=== PATIENT | male | born 1970 | race Caucasian/White ===

== ENCOUNTER 2016-10-05 11:57 | Inpatient (IN) | payer BC ==
[2016-10-05 12:54] VITALS: BMI 25.4
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
[2016-10-05] MEDS ORDERED: MAG HYDROX/AL HYDROX/SIMETH 30 ML UNIT-DOSE CUP PO PRN (14:44)
[2016-10-05] MEDS ORDERED: MENTHOL/PHENOL 1 EACH UD MM PRN (14:44)
[2016-10-05] MEDS ORDERED: ACETAMINOPHEN 325 MG TABLET (FP) PO PRN (14:44)
[2016-10-05] MEDS ORDERED: IBUPROFEN 400 MG TABLET (FP) PO PRN (14:44)
[2016-10-05] MEDS ORDERED: P-EPHED 60MG/TRIPROLIDI 2.5MG TABLET PO PRN (14:44)
[2016-10-05] MEDS ORDERED: NICOTINE POLACRILEX 2 MG GUM BUC PRN (14:44)
[2016-10-05] MEDS ORDERED: hydrOXYzine PAMOATE 25 MG CAPSULE (FP) PO PRN (14:44)
[2016-10-05] MEDS ORDERED: MAGNESIUM HYDROX 2400MG/30ML ORAL SUSPENSION 30 ML CUP PO PRN (14:44)
[2016-10-05] MEDS ORDERED: MAGNESIUM CITRATE 300 ML BOTTLE PO PRN (14:44)
[2016-10-05] MEDS ORDERED: guaiFENesin/D-METHORPHAN HB 10 ML UNIT-DOSE CUPS PO PRN (14:44)
[2016-10-05] MEDS ORDERED: LOPERAMIDE HCL 2 MG CAPSULE PO PRN (14:44)
[2016-10-05] MEDS ORDERED: NICOTINE 14 MG/24 HOURS TOPICAL PATCH TD SCH (14:45)
[2016-10-05] MEDS ORDERED: ALBUTEROL SO4 6.7 GM HFA INHALER IH PRN (14:50)
[2016-10-05] MEDS ORDERED: chlordiazePOXIDE HCL 25 MG CAPSULE PO ONE (15:13)
[2016-10-05 16:40] LABS: MCH 32.8 pg (25.7-33.7); MCHC 33.3 g/dl (32.0-35.9); MEAN CELL VOLUME 98.5 fl (80-96); MEAN PLT VOLUME 9.4 fl (7.5-11.1); PLATELET COUNT 66 K/MM3 (134-434); RDW 13.9 % (11.9-15.9); WHITE BLOOD COUNT 4.5 K/mm3 (4.0-10.0)
[2016-10-05 16:56] LABS: URINE APPEARANCE CLEAR; URINE BILIRUBIN NEGATIVE (NEGATIVE); URINE COLOR DKYELLOW; URINE GLUCOSE (UA) NEGATIVE (NEGATIVE); URINE KETONE NEGATIVE (NEGATIVE); URINE LEUK ESTERASE NEGATIVE (NEGATIVE); URINE NITRITE NEGATIVE (NEGATIVE); URINE PROTEIN NEGATIVE (NEGATIVE); URINE UROBILINOGEN 4.0 E.U/dl E.U./dl (0.2-1.0)
[2016-10-05 16:56] LABS: ALBUMIN 4.1 g/dl (3.4-5.0); ANION GAP 16 (8-16); BILIRUBIN,TOTAL 1.7 mg/dL (0.2-1.0); CALCIUM 8.2 mg/dL (8.5-10.1); CO2 22 mmol/L (21-32); COCKROFT - GAULT 130.82; CREATININE 0.7 mg/dL (0.7-1.3); GLUCOSE,RANDOM 94 mg/dL (74-106); SGOT/AST 209 U/L (15-37); SGPT/ALT 133 U/L (12-78); TOT PROT 7.2 g/dl (6.4-8.2)
[2016-10-05 16:57] LABS: ALK PHOS 101 U/L (45-117)
[2016-10-05] MEDS: chlordiazePOXIDE HCL 25 MG CAPSULE PO SCH ×2 (17:26→22:37)
[2016-10-05 17:33] LABS: URINE BLOOD 1+ (NEGATIVE)
[2016-10-05 17:43] LABS: GRANULAR CASTS 3 /lpf; URINE HYALINE CAST 4 /lpf; URINE MUCUS FEW; URINE RBC 1 /hpf (0-3); URINE WBC 2 /hpf (3-5)
[2016-10-05] MEDS: chlordiazePOXIDE HCL 25 MG CAPSULE PO PRN (20:05)
[2016-10-05] MEDS: THIAMINE HCL 100 MG TABLET (FP) PO SCH (22:37)
[2016-10-06] MEDS: chlordiazePOXIDE HCL 25 MG CAPSULE PO PRN ×3 (00:38→21:39)
[2016-10-06] MEDS: diphenhydrAMINE HCL 50 MG CAPSULE PO PRN ×2 (00:38→23:03)
[2016-10-06] MEDS: chlordiazePOXIDE HCL 25 MG CAPSULE PO SCH ×4 (06:03→23:03)
[2016-10-06] MEDS: PRENATAL VITAMINS W/ FOLIC ACID TABLET (FP) PO SCH (10:09)
[2016-10-06] MEDS: NICOTINE 21 MG/24 HOURS TOPICAL PATCH TD SCH (10:10)
--- NOTE | 2016-10-06 12:10 | PN ---
[facility] CIWA - CIWA Score Nausea/Vomitin-No Nausea/No Vomiting Muscle Tremors: 5 Anxiety: 5 Agitation: 5 Paroxysmal Sweats: 1-Minimal Palms Moist Orientation: 0-Oriented Tacttile Disturbances: 3-Moderate Itch/Numb/Burn Auditory Disturbances: 0-None Visual Disturbances: 0-None Headache: 0-None Present CIWA-Ar Total Score: 19 BHS Progress Note (SOAP) Subjective: ANXIETY,TREMORS,IRRITABILITY,FATIGUE,INTERMITTENT SLEEP. Objective: 10/06/16 12:09 Vital Signs Temperature 96.8 F L 10/06/16 10:21 Pulse Rate 92 H 10/06/16 10:21 Respiratory Rate 18 10/06/16 10:21 Blood Pressure 134/92 10/06/16 10:21 O2 Sat by Pulse Oximetry (%) Laboratory Last Values WBC 4.5 K/mm3 (4.0-10.0) 10/05/16 13:00 RBC 4.32 M/mm3 (4.00-5.60) 10/05/16 13:00 Hgb 14.2 GM/dL (11.7-16.9) 10/05/16 13:00 Hct 42.6 % (35.4-49) 10/05/16 13:00 MCV 98.5 fl (80-96) H 10/05/16 13:00 MCHC 33.3 g/dl (32.0-35.9) 10/05/16 13:00 RDW 13.9 % (11.9-15.9) 10/05/16 13:00 Plt Count 66 K/MM3 (134-434) L 10/05/16 13:00 MPV 9.4 fl (7.5-11.1) 10/05/16 13:00 Sodium 139 mmol/L (136-145) 10/05/16 13:00 Potassium 3.7 mmol/L (3.5-5.1) 10/05/16 13:00 Chloride 101 mmol/L (98-107) 10/05/16 13:00 Carbon Dioxide 22 mmol/L (21-32) 10/05/16 13:00 Anion Gap 16 (8-16) 10/05/16 13:00 BUN 5 mg/dL (7-18) L 10/05/16 13:00 Creatinine 0.7 mg/dL (0.7-1.3) 10/05/16 13:00 Creat Clearance w eGFR > 60 (>60) 10/05/16 13:00 Random Glucose 94 mg/dL (74-106) 10/05/16 13:00 Calcium 8.2 mg/dL (8.5-10.1) L 10/05/16 13:00 Total Bilirubin 1.7 mg/dL (0.2-1.0) H 10/05/16 13:00 AST 209 U/L (15-37) H 10/05/16 13:00 ALT 133 U/L (12-78) H 10/05/16 13:00 Alkaline Phosphatase 101 U/L (45-117) 10/05/16 13:00 Total Protein 7.2 g/dl (6.4-8.2) 10/05/16 13:00 Albumin 4.1 g/dl (3.4-5.0) 10/05/16 13:00 Urine Color Dkyellow 10/05/16 15:00 Urine Appearance Clear 10/05/16 15:00 Urine pH 6.0 (5.0-8.0) 10/05/16 15:00 Ur Specific [place] 1.012 (1.001-1.035) 10/05/16 15:00 Urine Protein Negative (NEGATIVE) 10/05/16 15:00 Urine Glucose (UA) Negative (NEGATIVE) 10/05/16 15:00 Urine Ketones Negative (NEGATIVE) 10/05/16 15:00 Urine Blood 1+ (NEGATIVE) H 10/05/16 15:00 Urine Nitrite Negative (NEGATIVE) 10/05/16 15:00 Urine Bilirubin Negative (NEGATIVE) 10/05/16 15:00 Urine Urobilinogen 4.0 e.u/dl E.U./dl (0.2-1.0) 10/05/16 15:00 Ur Leukocyte Esterase Negative (NEGATIVE) 10/05/16 15:00 Urine RBC 1 /hpf (0-3) 10/05/16 15:00 Urine WBC 2 /hpf (3-5) 10/05/16 15:00 Ur Epithelial Cells Rare /hpf (FEW) 10/05/16 15:00 Hyaline Casts 4 /lpf 10/05/16 15:00 Granular Casts 3 /lpf 10/05/16 15:00 Urine Mucus Few 10/05/16 15:00 Assessment: 10/06/16 12:09 WITHDRAWAL SX Plan: CONTINUE DETOX ADDITIONAL LIBRIUM 50 MG PO ONCE AT 2:30 PM TODAY.
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
--- NOTE | 2016-10-06 13:18 | EKG ---
Test Reason : Blood Pressure : / mmHG Vent. Rate : 100 BPM Atrial Rate : 100 BPM P-R Int : 126 ms QRS Dur : 072 ms QT Int : 352 ms P-R-T Axes : 066 066 056 degrees QTc Int : 454 ms NORMAL SINUS RHYTHM NORMAL ECG NO PREVIOUS ECGS AVAILABLE Confirmed by DAVIS SUMMERS, SUMANTH ([id number]) on 10/06/2016 1:18:09 PM Referred By: Confirmed By:SUMANTH CANNON MD
[2016-10-06] MEDS ORDERED: chlordiazePOXIDE HCL 25 MG CAPSULE PO ONE (14:30)
[2016-10-06] MEDS: THIAMINE HCL 100 MG TABLET (FP) PO SCH (23:02)
[2016-10-07] MEDS: chlordiazePOXIDE HCL 25 MG CAPSULE PO SCH ×2 (06:03→11:05)
--- NOTE | 2016-10-07 11:03 | PN ---
[facility] CIWA - CIWA Score Nausea/Vomitin-Mild Nausea/No Vomiting Muscle Tremors: 4-Moderate,w/Arms Extend Anxiety: 4-Mod. Anxious/Guarded Agitation: 3 Paroxysmal Sweats: 3 Orientation: 0-Oriented Tacttile Disturbances: 0-None Auditory Disturbances: 0-None Visual Disturbances: 0-None Headache: 0-None Present CIWA-Ar Total Score: 15 BHS Progress Note (SOAP) Subjective: Anxiety,tremors,sweating,interrupted sleep,restless Objective: 10/07/16 11:02 Vital Signs - 8 hr 10/07/16 10/07/16 10/07/16 03:30 06:42 07:57 Temperature 96.4 F L Pulse Rate 98 H 82 Respiratory 18 18 Rate Blood Pressure 133/98 115/82 10/07/16 10:18 Temperature 98.6 F Pulse Rate 120 H Respiratory 22 Rate Blood Pressure 135/95 Laboratory Tests 10/05/16 10/05/16 10/05/16 13:00 13:00 13:00 WBC 4.5 RBC 4.32 Hgb 14.2 Hct 42.6 MCV 98.5 H MCHC 33.3 RDW 13.9 Plt Count 66 L MPV 9.4 Sickle Cell Screen Sodium 139 Potassium 3.7 Chloride 101 Carbon Dioxide 22 Anion Gap 16 BUN 5 L Creatinine 0.7 Creat Clearance w eGFR > 60 Random Glucose 94 Calcium 8.2 L Total Bilirubin 1.7 H AST 209 H ALT 133 H Alkaline Phosphatase 101 Total Protein 7.2 Albumin 4.1 Urine Color Urine Appearance Urine pH Ur Specific [place] Urine Protein Urine Glucose (UA) Urine Ketones Urine Blood Urine Nitrite Urine Bilirubin Urine Urobilinogen Ur Leukocyte Esterase Urine RBC Urine WBC Ur Epithelial Cells Hyaline Casts Granular Casts Urine Mucus RPR Titer Nonreactive 10/05/16 10/06/16 15:00 07:00 WBC RBC Hgb Hct MCV MCHC RDW Plt Count MPV Sickle Cell Screen Negative Sodium Potassium Chloride Carbon Dioxide Anion Gap BUN Creatinine Creat Clearance w eGFR Random Glucose Calcium Total Bilirubin AST ALT Alkaline Phosphatase Total Protein Albumin Urine Color Dkyellow Urine Appearance Clear Urine pH 6.0 Ur Specific [place] 1.012 Urine Protein Negative Urine Glucose (UA) Negative Urine Ketones Negative Urine Blood 1+ H Urine Nitrite Negative Urine Bilirubin Negative Urine Urobilinogen 4.0 e.u/dl Ur Leukocyte Esterase Negative Urine RBC 1 Urine WBC 2 Ur Epithelial Cells Rare Hyaline Casts 4 Granular Casts 3 Urine Mucus Few RPR Titer labs noted Assessment: 10/07/16 11:02 Withdrawal sx. Plan: Continue detox
[2016-10-07] MEDS: PRENATAL VITAMINS W/ FOLIC ACID TABLET (FP) PO SCH (11:05)
[2016-10-07] MEDS: NICOTINE 21 MG/24 HOURS TOPICAL PATCH TD SCH (11:05)
[2016-10-07] MEDS: chlordiazePOXIDE HCL 25 MG CAPSULE PO PRN ×2 (14:28→20:01)
[2016-10-07] MEDS: chlordiazePOXIDE 5 MG CAPSULE PO SCH ×2 (17:18→22:28)
[2016-10-07] MEDS: diphenhydrAMINE HCL 50 MG CAPSULE PO PRN (22:28)
[2016-10-07] MEDS: THIAMINE HCL 100 MG TABLET (FP) PO SCH (22:28)
[2016-10-08] MEDS: chlordiazePOXIDE 5 MG CAPSULE PO SCH ×2 (05:48→10:43)
[2016-10-08] MEDS: chlordiazePOXIDE HCL 25 MG CAPSULE PO PRN ×2 (09:06→13:06)
[2016-10-08] MEDS: PRENATAL VITAMINS W/ FOLIC ACID TABLET (FP) PO SCH (10:43)
[2016-10-08] MEDS: NICOTINE 21 MG/24 HOURS TOPICAL PATCH TD SCH (10:46)
--- NOTE | 2016-10-08 11:21 | PN ---
BHS Progress Note (SOAP) Subjective: ANXIETY,SWEATS,TREMORS,UNSTABLE GAIT, FATIGUE. Objective: 10/08/16 11:21 Vital Signs Temperature 96.1 F L 10/08/16 10:04 Pulse Rate 76 10/08/16 10:04 Respiratory Rate 18 10/08/16 10:04 Blood Pressure 110/82 10/08/16 10:04 O2 Sat by Pulse Oximetry (%) Assessment: 10/08/16 11:21 WITHDRAWAL SX Plan: CONTINUE DETOX
[2016-10-08 13:25] LABS: ALBUMIN 3.4 g/dl (3.4-5.0); ANION GAP 8 (8-16); CALCIUM 9.2 mg/dL (8.5-10.1); CO2 28 mmol/L (21-32); COCKROFT - GAULT 114.46; CREATININE 0.8 mg/dL (0.7-1.3); GLUCOSE,RANDOM 83 mg/dL (74-106); SGOT/AST 109 U/L (15-37); SGPT/ALT 137 U/L (12-78)
[2016-10-08 13:26] LABS: ALK PHOS 82 U/L (45-117); BILIRUBIN,TOTAL 0.6 mg/dL (0.2-1.0); TOT PROT 6.2 g/dl (6.4-8.2)
[2016-10-08 13:31] LABS: INR 0.97 (0.82-1.09); PROTHROMBIN TIME (PATIENT) 10.7 SEC (9.98-11.88)
[2016-10-08] MEDS: chlordiazePOXIDE HCL 10 MG CAPSULE PO SCH ×2 (16:55→22:37)
[2016-10-08] MEDS: diphenhydrAMINE HCL 50 MG CAPSULE PO PRN (22:37)
[2016-10-08] MEDS: THIAMINE HCL 100 MG TABLET (FP) PO SCH (22:37)
[2016-10-09] MEDS: chlordiazePOXIDE HCL 10 MG CAPSULE PO SCH (05:41)
[2016-10-09 09:48] VITALS: BP 128/89; PULSE 95; TEMP 96.3
[2016-10-09] MEDS: PRENATAL VITAMINS W/ FOLIC ACID TABLET (FP) PO SCH (10:21)
[2016-10-09] MEDS: NICOTINE 21 MG/24 HOURS TOPICAL PATCH TD SCH (10:21)
--- NOTE | 2016-10-09 10:50 | DS ---
[facility] Detox Discharge Summary Admission Date: 10/05/16 Discharge Date: 10/09/16 - History Present History: Alcohol Dependence Pertinent Past History: Alcohol induced seizures, asthma - Physical Exam Results Vital Signs: Vital Signs Temperature 96.3 F L 10/09/16 09:48 Pulse Rate 95 H 10/09/16 09:48 Respiratory Rate 16 10/09/16 09:48 Blood Pressure 128/89 10/09/16 09:48 O2 Sat by Pulse Oximetry (%) Pertinent Admission Physical Exam Findings: withdrawal sx Laboratory Last Values WBC 4.5 K/mm3 (4.0-10.0) 10/05/16 13:00 RBC 4.32 M/mm3 (4.00-5.60) 10/05/16 13:00 Hgb 14.2 GM/dL (11.7-16.9) 10/05/16 13:00 Hct 42.6 % (35.4-49) 10/05/16 13:00 MCV 98.5 fl (80-96) H 10/05/16 13:00 MCHC 33.3 g/dl (32.0-35.9) 10/05/16 13:00 RDW 13.9 % (11.9-15.9) 10/05/16 13:00 Plt Count 66 K/MM3 (134-434) L 10/05/16 13:00 MPV 9.4 fl (7.5-11.1) 10/05/16 13:00 Sickle Cell Screen Negative (NEGATIVE) 10/06/16 07:00 INR 0.97 (0.82-1.09) 10/08/16 11:30 Sodium 140 mmol/L (136-145) 10/08/16 11:30 Potassium 3.9 mmol/L (3.5-5.1) 10/08/16 11:30 Chloride 104 mmol/L (98-107) 10/08/16 11:30 Carbon Dioxide 28 mmol/L (21-32) D 10/08/16 11:30 Anion Gap 8 (8-16) 10/08/16 11:30 BUN 8 mg/dL (7-18) D 10/08/16 11:30 Creatinine 0.8 mg/dL (0.7-1.3) 10/08/16 11:30 Creat Clearance w eGFR > 60 (>60) 10/08/16 11:30 Random Glucose 83 mg/dL (74-106) 10/08/16 11:30 Calcium 9.2 mg/dL (8.5-10.1) 10/08/16 11:30 Total Bilirubin 0.6 mg/dL (0.2-1.0) D 10/08/16 11:30 AST 109 U/L (15-37) H D 10/08/16 11:30 ALT 137 U/L (12-78) H 10/08/16 11:30 Alkaline Phosphatase 82 U/L (45-117) 10/08/16 11:30 Total Protein 6.2 g/dl (6.4-8.2) L 10/08/16 11:30 Albumin 3.4 g/dl (3.4-5.0) 10/08/16 11:30 Urine Color Dkyellow 10/05/16 15:00 Urine Appearance Clear 10/05/16 15:00 Urine pH 6.0 (5.0-8.0) 10/05/16 15:00 Ur Specific [place] 1.012 (1.001-1.035) 10/05/16 15:00 Urine Protein Negative (NEGATIVE) 10/05/16 15:00 Urine Glucose (UA) Negative (NEGATIVE) 10/05/16 15:00 Urine Ketones Negative (NEGATIVE) 10/05/16 15:00 Urine Blood 1+ (NEGATIVE) H 10/05/16 15:00 Urine Nitrite Negative (NEGATIVE) 10/05/16 15:00 Urine Bilirubin Negative (NEGATIVE) 10/05/16 15:00 Urine Urobilinogen 4.0 e.u/dl E.U./dl (0.2-1.0) 10/05/16 15:00 Ur Leukocyte Esterase Negative (NEGATIVE) 10/05/16 15:00 Urine RBC 1 /hpf (0-3) 10/05/16 15:00 Urine WBC 2 /hpf (3-5) 10/05/16 15:00 Ur Epithelial Cells Rare /hpf (FEW) 10/05/16 15:00 Hyaline Casts 4 /lpf 10/05/16 15:00 Granular Casts 3 /lpf 10/05/16 15:00 Urine Mucus Few 10/05/16 15:00 RPR Titer Nonreactive (NONREACTIVE) 10/05/16 13:00 labs noted - Treatment Hospital Course: Detox Protocol Followed, Detoxed Safely, Responded well, Discharged Condition Good - Medication Discharge Medications: Ambulatory Orders Albuterol Sulfate Inhaler - [Ventolin Hfa Inhaler -] 2 inh PO Q4H PRN 10/05/16 - Diagnosis (1) Alcohol dependence with uncomplicated withdrawal Current Visit: Yes Status: Acute (2) Nicotine dependence Current Visit: Yes Status: Acute Qualifiers: Nicotine product type: cigarettes Substance use status: uncomplicated Qualified Code(s): F17.210 - Nicotine dependence, cigarettes, uncomplicated (3) Asthma Current Visit: Yes Status: Chronic Qualifiers: Asthma severity: mild intermittent Asthma complication type: uncomplicated Qualified Code(s): J45.20 - Mild intermittent asthma, uncomplicated (4) Seizure due to alcohol withdrawal Current Visit: Yes Status: Chronic Qualifiers: Complication of substance-induced condition: with unspecified complication Qualified Code(s): F10.239 - Alcohol dependence with withdrawal, unspecified; R56.9 - Unspecified convulsions - AMA Did Patient Leave Against Medical Advice: No
== END 2016-10-09 10:43 | disposition home or self-care (01) | DRG 775 ==
LOC: YASAS 11:57 → Y3N 14:29
PROVIDERS: ADMIT Internal Medicine; ATTEND Internal Medicine
PROC: HZ2ZZZZ Detoxification Services for Substance Abuse Treatment (ICD-10-PCS; principal; 2016-10-09)
DX: F10.230 Alcohol dependence with withdrawal, uncomplicated (principal); F17.210 Nicotine dependence, cigarettes, uncomplicated; J45.20 Mild intermittent asthma, uncomplicated; G40.509 Epileptic seizures related to external causes, not intractable, without status epilepticus; G47.00 Insomnia, unspecified
CPT/HCPCS: 36415; 80053; 81003; 81015; 85027; 85610; 85660; 86593; 93005; 93010

== ENCOUNTER 2019-07-25 10:17 | Inpatient (IN) | payer OTHER ==
[2019-07-25 11:13] VITALS: BMI 29.8
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
[2019-07-25] MEDS ORDERED: MAGNESIUM CITRATE 300 ML BOTTLE PO PRN (16:14)
[2019-07-25] MEDS ORDERED: BISMUTH SUBSALICYLATE 524 MG/30 ML UD PO PRN (16:14)
[2019-07-25] MEDS ORDERED: hydrOXYzine PAMOATE 25 MG CAPSULE (FP) PO PRN (16:14)
[2019-07-25] MEDS ORDERED: MELATONIN 5 MG TABLETS PO PRN (16:14)
[2019-07-25] MEDS ORDERED: MAGNESIUM HYDROX 2400MG/30ML ORAL SUSPENSION 30 ML CUP PO PRN (16:14)
[2019-07-25] MEDS ORDERED: chlordiazePOXIDE HCL 25 MG CAPSULE PO PRN (16:14)
[2019-07-25] MEDS ORDERED: IBUPROFEN 400 MG TABLET (FP) PO PRN (16:14)
[2019-07-25] MEDS ORDERED: MENTHOL/PHENOL 1 EACH UD MM PRN (16:14)
[2019-07-25] MEDS ORDERED: ACETAMINOPHEN 325 MG TABLET (FP) PO PRN ×2 (16:14)
[2019-07-25] MEDS ORDERED: MAG HYDROX/AL HYDROX/SIMETH 30 ML UNIT-DOSE CUP PO PRN (16:14)
[2019-07-25] MEDS: chlordiazePOXIDE HCL 25 MG CAPSULE PO SCH ×2 (18:18→22:15)
[2019-07-25] MEDS: FAMOTIDINE 20 MG TABLET PO SCH (18:18)
[2019-07-25] MEDS: NICOTINE 21 MG/24 HOURS TOPICAL PATCH TD SCH (18:18)
[2019-07-25] MEDS ORDERED: levETIRAcetam 500 MG TABLET (FP) PO SCH (22:00)
[2019-07-25] MEDS ORDERED: ESLICARBAZEPINE ACETATE 800 MG PO SCH (22:00)
[2019-07-25] MEDS: levETIRAcetam 500 MG TABLET (FP) PO SCH (22:15)
[2019-07-25] MEDS: THIAMINE HCL 100 MG TABLET (FP) PO SCH (22:15)
[2019-07-25] MEDS: MONTELUKAST NA 5 MG TAB.CHEW PO SCH (22:15)
[2019-07-25] MEDS: METHOCARBAMOL 500 MG TABLET PO PRN (22:15)
[2019-07-26] MEDS: chlordiazePOXIDE HCL 25 MG CAPSULE PO SCH ×4 (06:09→23:53)
[2019-07-26 09:45] LABS: HEMATOCRIT 46.2 % (35.4-49); HEMOGLOBIN 15.3 GM/dL (11.7-16.9); MCHC 33.1 g/dl (32.0-35.9); MEAN CELL VOLUME 96.8 fl (80-96); MEAN PLT VOLUME 8.1 fl (7.5-11.1); PLATELET COUNT 92 K/MM3 (134-434); RBC 4.77 M/mm3 (4.00-5.60); RDW 14.2 % (11.9-15.9); WHITE BLOOD COUNT 3.4 K/mm3 (4.0-10.0)
[2019-07-26] MEDS ORDERED: PRENATAL VITAMINS W/ FOLIC ACID TABLET (FP) PO SCH (10:00)
[2019-07-26 10:03] LABS: ALBUMIN 3.1 g/dl (3.4-5.0); BILIRUBIN,TOTAL 1.1 mg/dL (0.2-1); BLOOD UREA NITROGEN 9.6 mg/dL (7-18); CALCIUM 8.6 mg/dL (8.5-10.1); CREATININE 0.8 mg/dL (0.55-1.3); POTASSIUM 3.2 mmol/L (3.5-5.1); TOT PROT 6.1 g/dl (6.4-8.2)
--- NOTE | 2019-07-26 10:17 | PN ---
[facility] CIWA - CIWA Score Nausea/Vomitin-Mild Nausea/No Vomiting Muscle Tremors: 4-Moderate,w/Arms Extend Anxiety: 4-Mod. Anxious/Guarded Agitation: 2 Paroxysmal Sweats: 2 Orientation: 0-Oriented Tacttile Disturbances: 0-None Auditory Disturbances: 0-None Visual Disturbances: 1-Very Mild Sensitivity Headache: 0-None Present CIWA-Ar Total Score: 14 S Progress Note (SOAP) Subjective: 48 year old male admitted on 07/25/19 for alcohol withdrawal sx management treating with librium detox regiment feeling tired prefers to stay in bed today limited conversation with staff patient is taking aptiom 800mg po bid x 4 years Mr Farris has not brought in aptiom upon admission patient reports using [facility] in the [place] called [phone] without success encourage the patient to contact with his neurologist 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 while in detox keppra continues 1000mg po bid instead of 500mg po bid Objective: 07/26/19 10:31 Vital Signs Temperature 97.2 F L 07/26/19 09:01 Pulse Rate 85 07/26/19 09:01 Respiratory Rate 18 07/26/19 09:01 Blood Pressure 117/81 07/26/19 09:01 O2 Sat by Pulse Oximetry (%) Laboratory Last Values WBC 3.4 K/mm3 (4.0-10.0) L 07/26/19 08:00 RBC 4.77 M/mm3 (4.00-5.60) 07/26/19 08:00 Hgb 15.3 GM/dL (11.7-16.9) 07/26/19 08:00 Hct 46.2 % (35.4-49) 07/26/19 08:00 MCV 96.8 fl (80-96) H 07/26/19 08:00 MCH 32.0 pg (25.7-33.7) 07/26/19 08:00 MCHC 33.1 g/dl (32.0-35.9) 07/26/19 08:00 RDW 14.2 % (11.9-15.9) 07/26/19 08:00 Plt Count 92 K/MM3 (134-434) L D 07/26/19 08:00 MPV 8.1 fl (7.5-11.1) D 07/26/19 08:00 Sodium 141 mmol/L (136-145) 07/26/19 08:00 Potassium 3.2 mmol/L (3.5-5.1) L 07/26/19 08:00 Chloride 106 mmol/L (98-107) 07/26/19 08:00 Carbon Dioxide 28 mmol/L (21-32) 07/26/19 08:00 Anion Gap 7 MMOL/L (8-16) L 07/26/19 08:00 BUN 9.6 mg/dL (7-18) 07/26/19 08:00 Creatinine 0.8 mg/dL (0.55-1.3) 07/26/19 08:00 Est GFR (CKD-EPI)AfAm 120.72 07/26/19 08:00 Est GFR (CKD-EPI)NonAf 104.16 07/26/19 08:00 Random Glucose 114 mg/dL (74-106) H 07/26/19 08:00 Calcium 8.6 mg/dL (8.5-10.1) 07/26/19 08:00 Total Bilirubin 1.1 mg/dL (0.2-1) H 07/26/19 08:00 AST 95 U/L (15-37) H 07/26/19 08:00 ALT 140 U/L (13-61) H 07/26/19 08:00 Alkaline Phosphatase 84 U/L (45-117) 07/26/19 08:00 Total Protein 6.1 g/dl (6.4-8.2) L 07/26/19 08:00 Albumin 3.1 g/dl (3.4-5.0) L 07/26/19 08:00 lb noted K+ 3.2 K+ placement repeat K+ Assessment: 07/26/19 10:34 alcohol withdrawal Plan: librium regiment
[2019-07-26] MEDS: levETIRAcetam 500 MG TABLET (FP) PO SCH ×2 (10:25→23:52)
[2019-07-26] MEDS: NICOTINE 21 MG/24 HOURS TOPICAL PATCH TD SCH (10:25)
[2019-07-26] MEDS: FAMOTIDINE 20 MG TABLET PO SCH (10:25)
[2019-07-26] MEDS: METHOCARBAMOL 500 MG TABLET PO PRN (10:26)
[2019-07-26] MEDS ORDERED: POTASSIUM CHLORIDE ORAL LIQUID 20 MEQ/15 ML PO ONE ×2 (11:08→15:00)
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
[2019-07-26] MEDS: carBAMazepine 200 MG TABLET PO SCH ×2 (15:47→23:53)
[2019-07-26 17:34] VITALS: PULSE 78
[2019-07-26 18:33] VITALS: BP 147/97; TEMP 97
--- NOTE | 2019-07-26 18:43 | PN ---
[facility] Progress Note Note: Was called by RN to eval pt for dizziness. 48 yo M w/ Hx of seizure d/o, HTN, alcohol abuse is in [place] care for detox from alcohol. pt states his last seizure was last week. pt states that he is compliant with his home meds and follows with his neurologist. He states that since tuesday he has been having presyncopal events and syncope on tuesday. + LOC. pt states that he gets lightheaded, palpitations. he states he feels unsteady walking. He states that his symptoms are especially bad today as he is so afraid to get out of bed and falling. Orthostatics were done and negative. + Romberg. 152/100, DC 84 141/104, 82 Will send to [facility] ED for further eval for syncope/pre-syncope. Sign out given to Dr. Johnny Garcia
[2019-07-26] MEDS: MONTELUKAST NA 5 MG TAB.CHEW PO SCH (23:52)
[2019-07-26] MEDS: THIAMINE HCL 100 MG TABLET (FP) PO SCH (23:53)
[2019-07-27] MEDS ORDERED: chlordiazePOXIDE HCL 25 MG CAPSULE PO SCH (05:00)
[2019-07-28] MEDS ORDERED: chlordiazePOXIDE HCL 10 MG CAPSULE PO PRN
[2019-07-28] MEDS ORDERED: chlordiazePOXIDE HCL 10 MG CAPSULE PO SCH (05:00)
[2019-07-29] MEDS ORDERED: chlordiazePOXIDE HCL 10 MG CAPSULE PO SCH (05:00)
[2019-07-30] MEDS ORDERED: chlordiazePOXIDE HCL 10 MG CAPSULE PO ONE (05:00)
== END 2019-07-26 23:56 | disposition short-term general hospital (02) | DRG 775 ==
LOC: YASAS 10:17 → Y3N 16:44
PROVIDERS: ADMIT Allergy & Immunology; ATTEND Allergy & Immunology
PROC: HZ2ZZZZ Detoxification Services for Substance Abuse Treatment (ICD-10-PCS; principal; 2019-07-25)
DX: F10.230 Alcohol dependence with withdrawal, uncomplicated (principal); F17.210 Nicotine dependence, cigarettes, uncomplicated; I10 Essential (primary) hypertension; G40.909 Epilepsy, unspecified, not intractable, without status epilepticus; J45.20 Mild intermittent asthma, uncomplicated; Z91.011 Allergy to milk products
CPT/HCPCS: 36415; 80053; 85027; 86593

== ENCOUNTER 2019-07-26 19:26 | Inpatient (IN) | payer OTHER ==
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
[2019-07-26 20:59] LABS: BASO % 0.4 % (0-2.0); HEMATOCRIT 47.9 % (35.4-49); HEMOGLOBIN 16.1 GM/dL (11.7-16.9); LYMPH % 31.4 % (8-40); MCH 32.3 pg (25.7-33.7); MCHC 33.7 g/dl (32.0-35.9); MEAN CELL VOLUME 95.8 fl (80-96); MEAN PLT VOLUME 8.4 fl (7.5-11.1); MONO % 10.5 % (3.8-10.2); NEUT % 55.7 % (42.8-82.8); PLATELET COUNT 121 K/MM3 (134-434); RDW 14.1 % (11.9-15.9); WHITE BLOOD COUNT 4.2 K/mm3 (4.0-10.0)
[2019-07-26 21:00] LABS: PH,URINE 8.5 (5.0-8.0); URINE APPEARANCE TURBID; URINE BILIRUBIN NEGATIVE (NEGATIVE); URINE COLOR YELLOW; URINE GLUCOSE (UA) NEGATIVE (NEGATIVE); URINE KETONE NEGATIVE (NEGATIVE); URINE LEUK ESTERASE NEGATIVE (NEGATIVE); URINE NITRITE NEGATIVE (NEGATIVE); URINE PROTEIN NEGATIVE (NEGATIVE)
--- NOTE | 2019-07-26 21:25 | PDOC ---
Attending Attestation - Resident Resident Name: Zelalem Darby - ED Attending Attestation I have performed the following: I have examined & evaluated the patient, The case was reviewed & discussed with the resident, I agree w/resident's findings & plan, Exceptions are as noted - HPI HPI: 07/27/19 00:36 See resident HPI - Physicial Exam PE: 07/27/19 00:36 Agree with documented exam - Medical Decision Making 07/27/19 00:38 48M pmh seizure, asthma, etoh abuse, sent from [facility] for several episodes of syncope a/w loc in context of 1 week of lightheadedness, vertigo, unstable gait. toxin? metabolic derangement? seizures? eval for syncope, consider cva f/u labs, ct dispo per clinical course likely admit
[2019-07-26] MEDS ORDERED: SODIUM CHLORIDE 1,000 ML IV SCH (21:30)
[2019-07-26 21:48] LABS: ALBUMIN 3.5 g/dl (3.4-5.0); ALK PHOS 96 U/L (45-117); ANION GAP 7 MMOL/L (8-16); BILIRUBIN,TOTAL 0.6 mg/dL (0.2-1); BLOOD UREA NITROGEN 10.8 mg/dL (7-18); CALCIUM 9.2 mg/dL (8.5-10.1); CHLORIDE 104 mmol/L (98-107); CO2 28 mmol/L (21-32); CREATININE 0.8 mg/dL (0.55-1.3); GLUCOSE,RANDOM 94 mg/dL (74-106); POTASSIUM 4.5 mmol/L (3.5-5.1); SGOT/AST 72 U/L (15-37); SGPT/ALT 130 U/L (13-61); SODIUM 138 mmol/L (136-145); TOT PROT 6.7 g/dl (6.4-8.2)
[2019-07-26 22:14] LABS: COCAINE, UR NEGATIVE ng/ml (CUTOFF=300); METHADONE, UR NEGATIVE ng/ml (CUTOFF=300); OPIATES, URI NEGATIVE ng/ml (CUTOFF=300); PHENCYCLIDINE,URINE NEGATIVE ng/ml (CUTOFF=25); URINE AMPHETAMINES NEGATIVE ng/ml (CUTOFF=500); URINE BARBITURATES NEGATIVE ng/ml (CUTOFF=200)
[2019-07-26 22:18] LABS: URINE BENZODIAZEPINES POSITIVE ng/ml (CUTOFF=200)
[2019-07-26] MEDS ORDERED: chlordiazePOXIDE HCL 25 MG CAPSULE PO ONE (23:37)
[2019-07-26] MEDS ORDERED: chlordiazePOXIDE HCL 25 MG CAPSULE PO PRN (23:37)
[2019-07-26] MEDS ORDERED: BISMUTH SUBSALICYLATE 524 MG/30 ML UD PO PRN (23:49)
[2019-07-26] MEDS ORDERED: ALBUTEROL SO4 HFA INHALER IH PRN (23:49)
[2019-07-26] MEDS ORDERED: FOLIC ACID 1 MG TABLET (FP) PO ONE (23:58)
[2019-07-27] MEDS ORDERED: SODIUM CHLORIDE 1,000 ML IV SCH
[2019-07-27 00:59] LABS: CHOLESTEROL 198 mg/dL (50-200); HDL CHOLESTEROL 81 mg/dL (40-60); LDL CHOLESTEROL (ONLY SJRH) 92 mg/dL (5-100); TRIGLYCERIDES 192 mg/dL (0-150)
[2019-07-27] MEDS ORDERED: HEPARIN NA (PORCINE) 5,000 UNITS/ML 1ML VIAL SQ SCH (02:00)
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
--- NOTE | 2019-07-27 02:35 | PN ---
Teaching Attending Note Name of Resident: Az Sullivan ATTENDING PHYSICIAN STATEMENT I saw and evaluated the patient. I reviewed the resident's note and discussed the case with the resident. I agree with the resident's findings and plan as documented. SUBJECTIVE: 48-year-old male with a significant history for seizures, EtOH abuse, vertigo status post seizure episode about 1 week ago on Keppra and carbamazepine sent from [facility] to ER after an episode of syncope with loss of consciousness with vertigo, unstable gait, lightheadedness. OBJECTIVE: Last Vital Signs Temp Pulse Resp BP Pulse Ox 98.4 F 83 18 129/93 98 07/26/19 23:33 07/26/19 23:33 07/26/19 23:33 07/26/19 23:33 07/26/19 23:33 GENERAL: Well developed, well nourished. Awake and alert. No acute distress. HEENT: Normocephalic, atraumatic. PERRLA, EOMI. No conjunctival pallor. Sclera are non- icteric. Moist mucous membranes. Oropharynx is clear. NECK: Supple. Full ROM. No JVD. Carotid pulses 2+ and symmetric, without bruits. No thyromegaly. No lymphadenopathy. CARDIOVASCULAR: Regular rate and rhythm. No murmurs, rubs, or gallops. Distal pulses are 2+ and symmetric. PULMONARY: No evidence of respiratory distress. Lungs clear to auscultation bilaterally. No wheezing, rales or rhonchi. ABDOMINAL: Soft. Non-tender. Non-distended. No rebound or guarding. No organomegaly. Normoactive bowel sounds. MUSCULOSKELETAL Normal range of motion at all joints. No bony deformities or tenderness. No CVA tenderness. EXTREMITIES: No cyanosis. No clubbing. No edema. No calf tenderness. SKIN: Warm and dry. Normal capillary refill. No rashes. No jaundice. NEUROLOGICAL: Alert, awake, appropriate. Cranial nerves 2-12 intact. No deficits to light touch and temperature in face, upper extremities and lower extremities. No motor deficits in the in face, upper extremities and lower extremities. Normoreflexic in the upper and lower extremities. Normal speech. PSYCHIATRIC: Cooperative. Good eye contact. Appropriate mood and affect. Abnormal Lab Results 07/26/19 07/26/19 07/26/19 20:25 20:25 20:25 Plt Count 121 L D Monocytes % 10.5 H Anion Gap 7 L AST 72 H ALT 130 H Triglycerides 192 H HDL Cholesterol 81 H Urine pH Salicylates Benzodiazepines Screen Positive A* 07/26/19 07/26/19 20:25 20:38 Plt Count Monocytes % Anion Gap AST ALT Triglycerides HDL Cholesterol Urine pH 8.5 H D Salicylates < 1.7 L Benzodiazepines Screen Imaging studies reviewed, CT of head with no evidence of acute intracranial pathology, cervical spine CT showed no fracture identified, probable moderate to market C4-C5 central canal stenosis. ASSESSMENT AND PLAN: 48-year-old male with history of substance abuse and seizure disorder presenting with ataxia. Initial imaging of head and C-spine in the ER was negative for any acute insults. R/o CVA. Admit to telemetry Send carbamazepine and Keppra levels Continue with home dose carbamazepine and Keppra MRI of brain Neurology consult Echo, carotid Doppler Urine toxicology screen showed benzos CIWA protocol Thiamine, folate, multivitamin, Ativan IV as needed Neuro checks Bedrest and fall precautions DVT prophylaxisheparin subcutaneously
[2019-07-27] MEDS ORDERED: LORazepam 2 MG/ML SDV VIAL IVPUSH PRN (03:23)
[2019-07-27] MEDS ORDERED: ALBUTEROL SO4 2.5/IPRATROPIUM 0.5 INH SOL 3 ML VIAL.NEB. NEB PRN (03:26)
[2019-07-27] MEDS ORDERED: MENTHOL/PHENOL 1 EACH UD MM PRN (03:29)
[2019-07-27] MEDS ORDERED: IBUPROFEN 400 MG TABLET (FP) PO PRN (03:32)
[2019-07-27] MEDS ORDERED: MAG HYDROX/AL HYDROX/SIMETH 30 ML UNIT-DOSE CUP PO PRN (03:32)
[2019-07-27] MEDS ORDERED: BISMUTH SUBSALICYLATE 524 MG/30 ML UD PO PRN (03:33)
[2019-07-27] MEDS ORDERED: METHOCARBAMOL 500 MG TABLET PO PRN (03:35)
[2019-07-27] MEDS ORDERED: hydrOXYzine PAMOATE 25 MG CAPSULE (FP) PO PRN (03:36)
[2019-07-27] MEDS ORDERED: ACETAMINOPHEN 325 MG TABLET (FP) PO PRN (03:36)
[2019-07-27] MEDS ORDERED: MECLIZINE HCL 12.5 MG TABLET PO PRN (04:12)
[2019-07-27] MEDS ORDERED: ONDANSETRON 4 MG/2 ML VIAL IVPUSH PRN (04:12)
[2019-07-27] MEDS: chlordiazePOXIDE HCL 25 MG CAPSULE PO SCH ×2 (06:03→11:21)
[2019-07-27] MEDS: HEPARIN NA (PORCINE) 5,000 UNITS/ML 1ML VIAL SQ SCH ×2 (06:03→13:06)
[2019-07-27] MEDS: carBAMazepine 200 MG TABLET PO SCH ×2 (06:03→13:08)
[2019-07-27 07:22] LABS: BASO % 0.3 % (0-2.0); EOS % 1.7 % (0-4.5); HEMATOCRIT 44.7 % (35.4-49); HEMOGLOBIN 15.1 GM/dL (11.7-16.9); LYMPH % 41.4 % (8-40); MCH 32.3 pg (25.7-33.7); MCHC 33.7 g/dl (32.0-35.9); MEAN CELL VOLUME 95.9 fl (80-96); MEAN PLT VOLUME 8.1 fl (7.5-11.1); MONO % 9.5 % (3.8-10.2); NEUT % 47.1 % (42.8-82.8); PLATELET COUNT 92 K/MM3 (134-434); RBC 4.67 M/mm3 (4.00-5.60); RDW 13.9 % (11.9-15.9); WHITE BLOOD COUNT 3.3 K/mm3 (4.0-10.0)
[2019-07-27 07:27] LABS: INR 0.94 (0.83-1.09); PROTHROMBIN TIME (PATIENT) 11.1 SEC (9.7-13.0)
[2019-07-27 07:30] LABS: ACTIVATED PTT 31.4 SECONDS (25.2-36.5)
[2019-07-27 08:25] LABS: ALBUMIN 3.2 g/dl (3.4-5.0); BILIRUBIN,TOTAL 0.8 mg/dL (0.2-1); BLOOD UREA NITROGEN 8.5 mg/dL (7-18); CALCIUM 8.8 mg/dL (8.5-10.1); CREATININE 0.8 mg/dL (0.55-1.3); POTASSIUM 3.9 mmol/L (3.5-5.1); TOT PROT 6.4 g/dl (6.4-8.2)
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
[2019-07-27] MEDS ORDERED: FAMOTIDINE 20 MG TABLET PO SCH (10:00)
[2019-07-27] MEDS ORDERED: NICOTINE 21 MG/24 HOURS TOPICAL PATCH TD SCH (10:00)
[2019-07-27] MEDS ORDERED: levETIRAcetam 500 MG TABLET (FP) PO SCH (10:00)
[2019-07-27] MEDS ORDERED: MULTIVITAMINS (DAILY MVI) TABLET (FP) PO SCH (10:00)
--- NOTE | 2019-07-27 11:23 | PN ---
Physical Exam: SUBJECTIVE: Patient seen and examined OBJECTIVE: Vital Signs Period Temp Pulse Resp BP Sys/Garcia Pulse Ox Last 24 Hr 97.4 F-98.4 F 69-83 18-18 114-143/79-98 96-99 GENERAL: The patient is awake, alert, and fully oriented, in no acute distress. HEAD: Normal with no signs of trauma. EYES: PERRL, extraocular movements intact, sclera anicteric, conjunctiva clear. No ptosis. ENT: Ears normal, nares patent, oropharynx clear without exudates, moist mucous membranes. NECK: Trachea midline, full range of motion, supple. LUNGS: Breath sounds equal, clear to auscultation bilaterally, no wheezes, no crackles, no accessory muscle use. HEART: Regular rate and rhythm, S1, S2 without murmur, rub or gallop. ABDOMEN: Soft, nontender, nondistended, normoactive bowel sounds, no guarding, no rebound, no hepatosplenomegaly, no masses. EXTREMITIES: 2+ pulses, warm, well-perfused, no edema. NEUROLOGICAL: Cranial nerves II through XII grossly intact. Normal speech, gait not observed. PSYCH: Normal mood, normal affect. SKIN: Warm, dry, normal turgor, no rashes or lesions noted Laboratory Results - last 24 hr 07/26/19 07/26/19 07/26/19 12:30 20:25 20:25 WBC 4.2 RBC 5.00 Hgb 16.1 Hct 47.9 MCV 95.8 MCH 32.3 MCHC 33.7 RDW 14.1 Plt Count 121 L D MPV 8.4 Absolute Neuts (auto) 2.4 Neutrophils % 55.7 Lymphocytes % 31.4 Monocytes % 10.5 H Eosinophils % 2.0 Basophils % 0.4 Nucleated RBC % 0 PT with INR 11.10 INR 0.94 PTT (Actin FS) 31.4 Sodium Potassium Chloride Carbon Dioxide Anion Gap BUN Creatinine Est GFR (CKD-EPI)AfAm Est GFR (CKD-EPI)NonAf Random Glucose Calcium Total Bilirubin AST ALT Alkaline Phosphatase Creatine Kinase 211 Creatine Kinase Index 0.6 CK-MB (CK-2) 1.4 Troponin I < 0.02 Total Protein Albumin Triglycerides Cholesterol Total LDL Cholesterol HDL Cholesterol Vitamin B12 TSH Urine Color Urine Appearance Urine pH Ur Specific [place] Urine Protein Urine Glucose (UA) Urine Ketones Urine Blood Urine Nitrite Urine Bilirubin Urine Urobilinogen Ur Leukocyte Esterase Salicylates Opiates Screen Methadone Screen Acetaminophen Barbiturate Screen Carbamazepine Phencyclidine Screen Ur Amphetamines Screen MDMA (Ecstasy) Screen Benzodiazepines Screen Cocaine Screen U Marijuana (THC) Screen Alcohol, Quantitative Blood Type Antibody Screen 07/26/19 07/26/19 07/26/19 20:25 20:25 20:25 WBC RBC Hgb Hct MCV MCH MCHC RDW Plt Count MPV Absolute Neuts (auto) Neutrophils % Lymphocytes % Monocytes % Eosinophils % Basophils % Nucleated RBC % PT with INR INR PTT (Actin FS) Sodium 138 Potassium 4.5 Chloride 104 Carbon Dioxide 28 Anion Gap 7 L BUN 10.8 Creatinine 0.8 Est GFR (CKD-EPI)AfAm 120.72 Est GFR (CKD-EPI)NonAf 104.16 Random Glucose 94 Calcium 9.2 Total Bilirubin 0.6 AST 72 H ALT 130 H Alkaline Phosphatase 96 Creatine Kinase Creatine Kinase Index CK-MB (CK-2) Troponin I Total Protein 6.7 Albumin 3.5 Triglycerides 192 H Cholesterol 198 Total LDL Cholesterol 92 HDL Cholesterol 81 H Vitamin B12 TSH Urine Color Yellow Urine Appearance Turbid Urine pH 8.5 H D Ur Specific [place] 1.021 Urine Protein Negative Urine Glucose (UA) Negative Urine Ketones Negative Urine Blood Negative Urine Nitrite Negative Urine Bilirubin Negative Urine Urobilinogen 1.0 Ur Leukocyte Esterase Negative Salicylates Opiates Screen Negative Methadone Screen Negative Acetaminophen Barbiturate Screen Negative Carbamazepine Phencyclidine Screen Negative Ur Amphetamines Screen Negative MDMA (Ecstasy) Screen Negative Benzodiazepines Screen Positive A* Cocaine Screen Negative U Marijuana (THC) Screen Negative Alcohol, Quantitative < 3 Blood Type Antibody Screen 07/26/19 07/26/19 07/26/19 20:32 20:38 23:35 WBC RBC Hgb Hct MCV MCH MCHC RDW Plt Count MPV Absolute Neuts (auto) Neutrophils % Lymphocytes % Monocytes % Eosinophils % Basophils % Nucleated RBC % PT with INR INR PTT (Actin FS) Sodium Potassium Chloride Carbon Dioxide Anion Gap BUN Creatinine Est GFR (CKD-EPI)AfAm Est GFR (CKD-EPI)NonAf Random Glucose Calcium Total Bilirubin AST ALT Alkaline Phosphatase Creatine Kinase Creatine Kinase Index CK-MB (CK-2) Troponin I Total Protein Albumin Triglycerides Cholesterol Total LDL Cholesterol HDL Cholesterol Vitamin B12 TSH Urine Color Urine Appearance Urine pH Ur Specific [place] Urine Protein Urine Glucose (UA) Urine Ketones Urine Blood Urine Nitrite Urine Bilirubin Urine Urobilinogen Ur Leukocyte Esterase Salicylates < 1.7 L Opiates Screen Methadone Screen Acetaminophen --noresult-- Barbiturate Screen Carbamazepine Phencyclidine Screen Ur Amphetamines Screen MDMA (Ecstasy) Screen Benzodiazepines Screen Cocaine Screen U Marijuana (THC) Screen Alcohol, Quantitative Blood Type O POSITIVE Antibody Screen Negative 07/27/19 07/27/19 07/27/19 05:45 05:45 06:45 WBC 3.3 L RBC 4.67 Hgb 15.1 Hct 44.7 MCV 95.9 MCH 32.3 MCHC 33.7 RDW 13.9 Plt Count 92 L D MPV 8.1 Absolute Neuts (auto) 1.6 Neutrophils % 47.1 Lymphocytes % 41.4 H D Monocytes % 9.5 Eosinophils % 1.7 Basophils % 0.3 Nucleated RBC % 0 PT with INR INR PTT (Actin FS) Sodium 139 Potassium 3.9 Chloride 105 Carbon Dioxide 29 Anion Gap 6 L BUN 8.5 Creatinine 0.8 Est GFR (CKD-EPI)AfAm 120.72 Est GFR (CKD-EPI)NonAf 104.16 Random Glucose 82 Calcium 8.8 Total Bilirubin 0.8 AST 54 H ALT 112 H Alkaline Phosphatase 86 Creatine Kinase Creatine Kinase Index CK-MB (CK-2) Troponin I Total Protein 6.4 Albumin 3.2 L Triglycerides Cholesterol Total LDL Cholesterol HDL Cholesterol Vitamin B12 472 TSH 4.58 H Urine Color Urine Appearance Urine pH Ur Specific [place] Urine Protein Urine Glucose (UA) Urine Ketones Urine Blood Urine Nitrite Urine Bilirubin Urine Urobilinogen Ur Leukocyte Esterase Salicylates Opiates Screen Methadone Screen Acetaminophen <2.0 Barbiturate Screen Carbamazepine 2.7 Phencyclidine Screen Ur Amphetamines Screen MDMA (Ecstasy) Screen Benzodiazepines Screen Cocaine Screen U Marijuana (THC) Screen Alcohol, Quantitative Blood Type Antibody Screen Active Medications Generic Name Dose Route Start Last Admin Trade Name Freq PRN Reason Stop Dose Admin Acetaminophen 650 mg 07/27/19 03:36 07/27/19 06:06 Tylenol - PO 650 mg Q6H PRN Administration Fever Or Pain Al Hydroxide/Mg Hydroxide 30 ml 07/27/19 03:32 Mylanta Oral Suspension - PO Q6H PRN DYSPEPSIA Albuterol Sulfate 2 puff 07/26/19 23:49 Ventolin Hfa Inhaler - IH Q4H PRN SHORTNESS OF BREATH Albuterol/Ipratropium 1 amp 07/27/19 03:26 Duoneb - NEB Q4H PRN SHORTNESS OF BREATH Bismuth Subsalicylate 524 mg 07/26/19 23:49 Pepto-Bismol - PO PRN PRN DIARRHEA Carbamazepine 200 mg 07/27/19 06:00 07/27/19 06:03 Tegretol - PO 200 mg TID LEODAN Administration Chlordiazepoxide HCl 10 mg 07/28/19 05:00 Librium - PO 07/28/19 23:01 [id number] LEODAN Chlordiazepoxide HCl 10 mg 07/29/19 05:00 Librium - PO 07/29/19 17:01 Q12H LEODAN Chlordiazepoxide HCl 10 mg 07/28/19 00:00 Librium - PO 07/29/19 00:00 Q4H PRN WITHDRAWAL(CONT SUBST) Chlordiazepoxide HCl 10 mg 07/30/19 05:00 Librium - PO 07/30/19 05:01 ONCE@0500 ONE Chlordiazepoxide HCl 25 mg 07/27/19 05:00 07/27/19 06:03 Librium - PO 07/27/19 23:01 25 mg [id number] LEODAN Administration Chlordiazepoxide HCl 25 mg 07/26/19 23:37 Librium - PO 07/27/19 23:59 Q4H PRN WITHDRAWAL(CONT SUBST) Eucalyptus/Menthol/Phenol/Sorbitol 1 each 07/27/19 03:29 Cepastat Lozenge - MM Q4H PRN SORE THROAT Famotidine 20 mg 07/27/19 10:00 Pepcid - PO DAILY [facility] Heparin Sodium (Porcine) 5,000 unit 07/27/19 06:00 07/27/19 06:03 Heparin - SQ 5,000 unit TID LEODAN Administration Hydroxyzine Pamoate 25 mg 07/27/19 03:36 Vistaril - PO Q6H PRN ANXIETY Sodium Chloride 1,000 mls @ 100 mls/hr 07/27/19 00:00 07/27/19 00:53 Normal Saline - IV 100 mls/hr ASDIR LEODAN Administration Ibuprofen 400 mg 07/27/19 03:32 Motrin - PO Q6H PRN PAIN LEVEL 6-10 Levetiracetam 1,000 mg 07/27/19 10:00 Keppra - PO BID [facility] Lorazepam 1 mg 07/27/19 03:23 Ativan Injection - IVPUSH Q6H PRN WITHDRAWAL(CONT SUBST) Meclizine HCl 12.5 mg 07/27/19 04:12 Antivert - PO BID PRN VERTIGO Melatonin 5 mg 07/27/19 22:00 Melatonin PO HS [facility] Methocarbamol 500 mg 07/27/19 03:35 Robaxin - PO Q6H PRN MUSCLE SPASMS Montelukast Sodium 5 mg 07/27/19 22:00 Singulair - PO HS [facility] Multivitamins/Minerals/Vitamin C 1 tab 07/27/19 10:00 Tab-A-Vit - PO DAILY [facility] Nicotine 21 mg 07/27/19 10:00 Nicoderm Patch - TD DAILY [facility] Ondansetron HCl 4 mg 07/27/19 04:12 Zofran Injection IVPUSH ONCE PRN NAUSEA Propranolol HCl 40 mg 07/27/19 10:00 Inderal - PO DAILY [facility] Thiamine HCl 100 mg 07/27/19 22:00 Vitamin B1 - PO HS [facility] ASSESSMENT/PLAN:
--- NOTE | 2019-07-27 12:03 | ECHO ---
Name: JERRYTESSYS Exam:Adult Echocardiogram Study Date: 07/27/2019 08:31 AM Age: 48 yrs Reason For Study: stroke r/o Height: 66 in Weight: 185 lb BSA: 1.9 m2 MMode/2D Measurements & Calculations IVSd: 0.99 cm Ao root diam: 3.3 cm LVIDd: 4.8 cm LA dimension: 3.6 cm LVIDs: 3.5 cm ACS: 2.0 cm LVPWd: 0.90 cm IVSs: 1.2 cm LVPWs: 1.0 cm EDV(Teich): 108.6 ml ESV(Teich): 50.9 ml Doppler Measurements & Calculations MV E max ab: 46.2 cm/sec Ao V2 max: 114.0 cm/sec MV A max ab: 58.2 cm/sec Ao max P.2 mmHg MV E/A: 0.79 Ao V2 mean: 78.9 cm/sec Ao mean P.9 mmHg Ao V2 VTI: 22.8 cm TR max ab: 245.4 cm/sec Med Peak E' Ab: 6.0 cm/sec TR max P.1 mmHg Med E/e': 7.7 Lat Peak E' Ab: 7.5 cm/sec Lat E/e': 6.2 Left Ventricle Left ventricular systolic function is normal. Ejection Fraction = 50-55%. The transmitral spectral Do ppler flow pattern is suggestive of impaired LV relaxation. Right Ventricle The right ventricle is grossly normal size. The right ventricular systolic function is grossly normal . Atria Normal left and right atrial size and function. Mitral Valve There is mild mitral valve thickening. There is no mitral valve stenosis. There is mild mitral regurg itation. Tricuspid Valve The tricuspid valve is normal in structure and function. There is mild tricuspid regurgitation. Right ventricular systolic pressure is normal. Aortic Valve The aortic valve opens well. No hemodynamically significant valvular aortic stenosis. No aortic regur gitation is present. Pulmonic Valve The pulmonic valve is not well seen, but is grossly normal. There is no pulmonic valvular stenosis. M ild pulmonic valvular regurgitation. Great Vessels The aortic root is normal size. Pericardium/Pleura There is no pericardial effusion. Interpretation Summary Left ventricular systolic function is normal. Ejection Fraction = 50-55%. The transmitral spectral Doppler flow pattern is suggestive of impaired LV relaxation. There is mild mitral valve thickening. There is mild mitral regurgitation. There is mild tricuspid regurgitation. Right ventricular systolic pressure is normal. There is no pericardial effusion. MD Mora *Jonel 07/27/2019 12:03 PM
[2019-07-27] MEDS ORDERED: PT OWN MED DRAWER 7, Y5N ONE (12:47)
[2019-07-27 14:30] VITALS: BP 129/97; PULSE 69; TEMP 97.9
--- NOTE | 2019-07-27 15:36 | EKG ---
Test Reason : Blood Pressure : / mmHG Vent. Rate : 079 BPM Atrial Rate : 079 BPM P-R Int : 126 ms QRS Dur : 072 ms QT Int : 384 ms P-R-T Axes : 047 052 046 degrees QTc Int : 440 ms NORMAL SINUS RHYTHM CANNOT RULE OUT ANTERIOR INFARCT , AGE UNDETERMINED ABNORMAL ECG WHEN COMPARED WITH ECG OF 05-OCT-2016 14:45, NONSPECIFIC T WAVE ABNORMALITY NO LONGER EVIDENT IN LATERAL LEADS Confirmed by VAHE SANTIAGO MD ([id number]) on 07/27/2019 3:35:37 PM Referred By: Confirmed By:VAHE SANTIAGO MD
--- NOTE | 2019-07-27 15:49 | DS ---
Physical Exam: SUBJECTIVE: Patient seen and examined at the bedside. wants to leave AMA. does not want to complete librium taper or be evaluated by vascular surgery. Patient has shown me that he has the capacity to make his own medical decisions. Adamantly refusing to stay despite asking him to re consider since he is not fully detoxed. He states he feels better and will seek help from AA and does not want to go back to [facility]. He is awake, alert and oriented. OBJECTIVE: Vital Signs Period Temp Pulse Resp BP Sys/Garcia Pulse Ox Last 24 Hr 97.4 F-98.4 F 69-83 17-18 114-143/79-98 96-99 PHYSICAL EXAM GENERAL: The patient is awake, alert, and fully oriented, in no acute distress. HEAD: Normal with no signs of trauma. EYES: PERRL, extraocular movements intact, sclera anicteric, conjunctiva clear. ENT: Ears normal, nares patent, oropharynx clear without exudates, moist mucous membranes. NECK: Trachea midline, full range of motion, supple. LUNGS: Breath sounds equal, clear to auscultation bilaterally, no wheezes, no crackles, no accessory muscle use. HEART: Regular rate and rhythm, S1, S2 without murmur, rub or gallop. ABDOMEN: soft, obese abdomen, no pain, no nausea or vomiting EXTREMITIES: 2+ pulses, warm, well-perfused, no edema. NEUROLOGICAL: Normal speech, gait steady PSYCH: calm SKIN: Warm, dry, normal turgor, no rashes or lesions noted. LABS Laboratory Results - last 24 hr 07/26/19 07/26/19 07/26/19 12:30 20:25 20:25 WBC 4.2 RBC 5.00 Hgb 16.1 Hct 47.9 MCV 95.8 MCH 32.3 MCHC 33.7 RDW 14.1 Plt Count 121 L D MPV 8.4 Absolute Neuts (auto) 2.4 Neutrophils % 55.7 Lymphocytes % 31.4 Monocytes % 10.5 H Eosinophils % 2.0 Basophils % 0.4 Nucleated RBC % 0 PT with INR 11.10 INR 0.94 PTT (Actin FS) 31.4 Sodium Potassium Chloride Carbon Dioxide Anion Gap BUN Creatinine Est GFR (CKD-EPI)AfAm Est GFR (CKD-EPI)NonAf Random Glucose Calcium Total Bilirubin AST ALT Alkaline Phosphatase Creatine Kinase 211 Creatine Kinase Index 0.6 CK-MB (CK-2) 1.4 Troponin I < 0.02 Total Protein Albumin Triglycerides Cholesterol Total LDL Cholesterol HDL Cholesterol Vitamin B12 TSH Free T4 Urine Color Urine Appearance Urine pH Ur Specific Benedict Urine Protein Urine Glucose (UA) Urine Ketones Urine Blood Urine Nitrite Urine Bilirubin Urine Urobilinogen Ur Leukocyte Esterase Salicylates Opiates Screen Methadone Screen Acetaminophen Barbiturate Screen Carbamazepine Phencyclidine Screen Ur Amphetamines Screen MDMA (Ecstasy) Screen Benzodiazepines Screen Cocaine Screen U Marijuana (THC) Screen Alcohol, Quantitative Blood Type Antibody Screen 07/26/19 07/26/19 07/26/19 20:25 20:25 20:25 WBC RBC Hgb Hct MCV MCH MCHC RDW Plt Count MPV Absolute Neuts (auto) Neutrophils % Lymphocytes % Monocytes % Eosinophils % Basophils % Nucleated RBC % PT with INR INR PTT (Actin FS) Sodium 138 Potassium 4.5 Chloride 104 Carbon Dioxide 28 Anion Gap 7 L BUN 10.8 Creatinine 0.8 Est GFR (CKD-EPI)AfAm 120.72 Est GFR (CKD-EPI)NonAf 104.16 Random Glucose 94 Calcium 9.2 Total Bilirubin 0.6 AST 72 H ALT 130 H Alkaline Phosphatase 96 Creatine Kinase Creatine Kinase Index CK-MB (CK-2) Troponin I Total Protein 6.7 Albumin 3.5 Triglycerides 192 H Cholesterol 198 Total LDL Cholesterol 92 HDL Cholesterol 81 H Vitamin B12 TSH Free T4 Urine Color Yellow Urine Appearance Turbid Urine pH 8.5 H D Ur Specific Benedict 1.021 Urine Protein Negative Urine Glucose (UA) Negative Urine Ketones Negative Urine Blood Negative Urine Nitrite Negative Urine Bilirubin Negative Urine Urobilinogen 1.0 Ur Leukocyte Esterase Negative Salicylates Opiates Screen Negative Methadone Screen Negative Acetaminophen Barbiturate Screen Negative Carbamazepine Phencyclidine Screen Negative Ur Amphetamines Screen Negative MDMA (Ecstasy) Screen Negative Benzodiazepines Screen Positive A* Cocaine Screen Negative U Marijuana (THC) Screen Negative Alcohol, Quantitative < 3 Blood Type Antibody Screen 07/26/19 07/26/19 07/26/19 20:32 20:38 23:35 WBC RBC Hgb Hct MCV MCH MCHC RDW Plt Count MPV Absolute Neuts (auto) Neutrophils % Lymphocytes % Monocytes % Eosinophils % Basophils % Nucleated RBC % PT with INR INR PTT (Actin FS) Sodium Potassium Chloride Carbon Dioxide Anion Gap BUN Creatinine Est GFR (CKD-EPI)AfAm Est GFR (CKD-EPI)NonAf Random Glucose Calcium Total Bilirubin AST ALT Alkaline Phosphatase Creatine Kinase Creatine Kinase Index CK-MB (CK-2) Troponin I Total Protein Albumin Triglycerides Cholesterol Total LDL Cholesterol HDL Cholesterol Vitamin B12 TSH Free T4 Urine Color Urine Appearance Urine pH Ur Specific Benedict Urine Protein Urine Glucose (UA) Urine Ketones Urine Blood Urine Nitrite Urine Bilirubin Urine Urobilinogen Ur Leukocyte Esterase Salicylates < 1.7 L Opiates Screen Methadone Screen Acetaminophen --noresult-- Barbiturate Screen Carbamazepine Phencyclidine Screen Ur Amphetamines Screen MDMA (Ecstasy) Screen Benzodiazepines Screen Cocaine Screen U Marijuana (THC) Screen Alcohol, Quantitative Blood Type O POSITIVE Antibody Screen Negative 07/27/19 07/27/19 07/27/19 05:45 05:45 06:45 WBC 3.3 L RBC 4.67 Hgb 15.1 Hct 44.7 MCV 95.9 MCH 32.3 MCHC 33.7 RDW 13.9 Plt Count 92 L D MPV 8.1 Absolute Neuts (auto) 1.6 Neutrophils % 47.1 Lymphocytes % 41.4 H D Monocytes % 9.5 Eosinophils % 1.7 Basophils % 0.3 Nucleated RBC % 0 PT with INR INR PTT (Actin FS) Sodium 139 Potassium 3.9 Chloride 105 Carbon Dioxide 29 Anion Gap 6 L BUN 8.5 Creatinine 0.8 Est GFR (CKD-EPI)AfAm 120.72 Est GFR (CKD-EPI)NonAf 104.16 Random Glucose 82 Calcium 8.8 Total Bilirubin 0.8 AST 54 H ALT 112 H Alkaline Phosphatase 86 Creatine Kinase Creatine Kinase Index CK-MB (CK-2) Troponin I Total Protein 6.4 Albumin 3.2 L Triglycerides Cholesterol Total LDL Cholesterol HDL Cholesterol Vitamin B12 472 TSH 4.58 H Free T4 0.93 Urine Color Urine Appearance Urine pH Ur Specific Benedict Urine Protein Urine Glucose (UA) Urine Ketones Urine Blood Urine Nitrite Urine Bilirubin Urine Urobilinogen Ur Leukocyte Esterase Salicylates Opiates Screen Methadone Screen Acetaminophen <2.0 Barbiturate Screen Carbamazepine 2.7 Phencyclidine Screen Ur Amphetamines Screen MDMA (Ecstasy) Screen Benzodiazepines Screen Cocaine Screen U Marijuana (THC) Screen Alcohol, Quantitative Blood Type Antibody Screen HOSPITAL COURSE: Date of Admission:07/26/19 Date of Discharge: 07/27/19 patient wants to leave AMA, does not want to complete librium taper. he is awake alert and oriented. See CIWA score. He denies headaches, denies nausea/vomiting, no tremors. No hallucinations. Minutes to complete discharge: 45 Discharge Summary Problems reviewed: Yes Reason For Visit: SYNCOPE Current Active Problems Ataxia (Acute) Syncope (Acute) Condition: Guarded - Instructions Disposition: AGAINST MEDICAL ADVICE - Home Medications Comprehensive Discharge Medication List: Ambulatory Orders Albuterol Sulfate Inhaler - [Ventolin Hfa Inhaler -] 2 inh PO Q4H PRN 10/05/16 Levetiracetam 1,000 mg PO BID 07/25/19 Montelukast Sodium [Singulair] 5 mg PO HS 07/25/19 Multivitamins [Multivit ([facility] Formul[facility])] 1 tab PO DAILY 07/25/19 Propranolol HCl 40 mg PO DAILY 07/25/19 Bismuth Subsalicylate [Pepto-Bismol -] 524 mg PO PRN PRN 07/26/19 Carbamazepine [Tegretol -] 200 mg PO TID 07/26/19 Melatonin 5 mg PO HS 07/26/19 Nicotine Patch [Nicoderm Patch -] 1 patch TD DAILY 07/26/19 This patient is new to me today: Yes Date on this admission: 07/27/19 Emergency Visit: Yes ED Registration Date: 07/26/19 Care time: The patient presented to the Emergency Department on the above date and was hospitalized for further evaluation of their emergent condition. Critical Care patient: No - Discharge Referral Referred to [facility] Med P.C.: No CIWA Score Nausea/Vomitin-No Nausea/No Vomiting Muscle Tremors: None Anxiety: 1-Mildly Anxious Agitation: 0-Normal Activity Paroxysmal Sweats: No Perspiration Orientation: 0-Oriented Tacttile Disturbances: 0-None Auditory Disturbances: 0-None Visual Disturbances: 0-None Headache: 0-None Present CIWA-Ar Total Score: 1 - Admission Criteria OASAS Guidelines: Admission for Medically Managed Detox: Requires at least one of the followin. CIWA greater than 12 2. Seizures within the past 24 hours 3. Delirium tremens within the past 24 hours 4. Hallucinations within the past 24 hours 5. Acute intervention needed for co occurring medical disorder 6. Acute intervention needed for co occurring psychiatric disorder 7. Severe withdrawal that cannot be handled at a lower level of care (continued vomiting, continued diarrhea, abnormal vital signs) requiring intravenous medication and/or fluids 8.
[2019-07-27] MEDS ORDERED: MONTELUKAST NA 5 MG TAB.CHEW PO SCH ×2 (22:00)
[2019-07-27] MEDS ORDERED: THIAMINE HCL 100 MG TABLET (FP) PO SCH (22:00)
[2019-07-27] MEDS ORDERED: MELATONIN 5 MG TABLETS PO SCH (22:00)
[2019-07-28] MEDS ORDERED: chlordiazePOXIDE HCL 10 MG CAPSULE PO PRN
[2019-07-28] MEDS ORDERED: chlordiazePOXIDE HCL 10 MG CAPSULE PO SCH (05:00)
[2019-07-29] MEDS ORDERED: chlordiazePOXIDE HCL 10 MG CAPSULE PO SCH (05:00)
[2019-07-30] MEDS ORDERED: chlordiazePOXIDE HCL 10 MG CAPSULE PO ONE (05:00)
[2019-07-31 00:09] LABS: CHLORDIAZEPOXIDE (LIBRIUM) 3.1 ug/mL (.)
[2019-07-31 03:10] LABS: FIBROSIS SCORE. 0.11 (0.00-0.21); HCV ALPHA 2 MACRO CHART 140 mg/dL (110-276); NECRO.INFLAM ACT.SCORE 0.49 (0.00-0.17); NECROINFLAM. ACTIVITY GRADE A1-A2 (.)
== END 2019-07-27 16:34 | disposition left against medical advice (07) | DRG 204 ==
LOC: JER 19:26 → JERBED 22:13 → J4S 23:51
PROVIDERS: ADMIT Internal Medicine; ATTEND Nurse Practitioner Family
DX: R55 Syncope and collapse (principal); R27.0 Ataxia, unspecified; G40.909 Epilepsy, unspecified, not intractable, without status epilepticus; R74.0 Nonspecific elevation of levels of transaminase and lactic acid dehydrogenase [LDH]; F17.210 Nicotine dependence, cigarettes, uncomplicated; I10 Essential (primary) hypertension
CPT/HCPCS: 36415; 70450-TC; 71045-TC-FY; 72125-TC; 76705-TC; 80053; 80061; 80074; 80177; 80307; 81003; 82172; 82550; 82553; 82607; 82977; 83010; 83721; 83883; 84439; 84443; 84460; 84484; 85025; 85610; 85730; 86593; 86850; 86900; 86901; 87086; 93005; 93010; 93306-TC; 93880-TC; 97161-GP; 99285-25; G0480; J1644; J7030

== ENCOUNTER 2020-09-16 17:02 | Inpatient (IN) | payer OTHER ==
[2020-09-16 17:32] VITALS: BMI 29.0
[2020-09-16] MEDS ORDERED: MAG HYDROX/AL HYDROX/SIMETH 30 ML UNIT-DOSE CUP PO PRN (18:30)
[2020-09-16] MEDS ORDERED: NICOTINE POLACRILEX 2 MG GUM BUC PRN (18:30)
[2020-09-16] MEDS ORDERED: ONDANSETRON *ODT* 4 MG TABLET SL PRN (18:30)
[2020-09-16] MEDS ORDERED: ACETAMINOPHEN 325 MG TABLET (FP) PO PRN ×2 (18:30)
[2020-09-16] MEDS ORDERED: MAGNESIUM CITRATE 300 ML BOTTLE PO PRN (18:30)
[2020-09-16] MEDS ORDERED: MENTHOL/PHENOL 1 EACH UD MM PRN (18:30)
[2020-09-16] MEDS ORDERED: IBUPROFEN 400 MG TABLET (FP) PO PRN (18:30)
[2020-09-16] MEDS ORDERED: BISMUTH SUBSALICYLATE 524 MG/30 ML UD PO PRN (18:30)
[2020-09-16] MEDS ORDERED: METHOCARBAMOL 500 MG TABLET PO PRN (18:30)
[2020-09-16] MEDS ORDERED: MAGNESIUM HYDROX 2400MG/30ML ORAL SUSPENSION 30 ML CUP PO PRN (18:30)
[2020-09-16] MEDS ORDERED: diazePAM 5 MG TABLET PO ONE (18:32)
[2020-09-16] MEDS ORDERED: ALBUTEROL SO4 HFA INHALER IH PRN (19:43)
[2020-09-16] MEDS ORDERED: MELATONIN 5 MG TABLETS PO SCH (22:00)
[2020-09-16] MEDS ORDERED: MONTELUKAST NA 5 MG TAB.CHEW PO SCH (22:00)
[2020-09-16] MEDS: levETIRAcetam 500 MG TABLET (FP) PO SCH (22:24)
[2020-09-16] MEDS: THIAMINE HCL 100 MG TABLET (FP) PO SCH (22:28)
[2020-09-16] MEDS: carBAMazepine 200 MG TABLET PO SCH (22:28)
[2020-09-16] MEDS: diazePAM 5 MG TABLET PO SCH (23:27)
[2020-09-17] MEDS: carBAMazepine 200 MG TABLET PO SCH ×3 (06:00→22:20)
[2020-09-17] MEDS: diazePAM 5 MG TABLET PO SCH ×4 (06:02→22:20)
[2020-09-17] MEDS: levETIRAcetam 500 MG TABLET (FP) PO SCH ×2 (10:22→22:20)
[2020-09-17] MEDS: PRENATAL VITAMINS W/ FOLIC ACID TABLET (FP) PO SCH (10:24)
[2020-09-17 10:50] LABS: HEMOGLOBIN 14.2 GM/dL (11.7-16.9); MCH 32.8 pg (25.7-33.7); MCHC 33.9 g/dl (32.0-35.9); MEAN CELL VOLUME 96.9 fl (80-96); MEAN PLT VOLUME 7.9 fl (7.5-11.1); PLATELET COUNT 157 K/MM3 (134-434); RBC 4.34 M/mm3 (4.00-5.60); RDW 13.9 % (11.9-15.9); WHITE BLOOD COUNT 4.3 K/mm3 (4.0-10.0)
[2020-09-17 11:01] LABS: BILIRUBIN,TOTAL 1.1 mg/dL (0.2-1); TOT PROT 6.5 g/dl (6.4-8.2)
[2020-09-17 11:05] LABS: CALCIUM 9.1 mg/dL (8.5-10.1)
[2020-09-17 11:06] LABS: ALBUMIN 3.6 g/dl (3.4-5.0); BLOOD UREA NITROGEN 10.5 mg/dL (7-18)
[2020-09-17] MEDS ORDERED: PNEUMOCOCCAL 23 VACCINE 0.5 ML VIAL IM ONE (12:00)
[2020-09-17 12:32] LABS: HIV INTERPRETATION NEGATIVE (NEGATIVE)
[2020-09-17] MEDS ORDERED: MONTELUKAST NA 5 MG TAB.CHEW PO SCH (22:00)
[2020-09-17] MEDS: THIAMINE HCL 100 MG TABLET (FP) PO SCH (22:20)
[2020-09-17] MEDS: MONTELUKAST NA 10 MG TABLET PO SCH (22:21)
[2020-09-17] MEDS: MELATONIN 5 MG TABLETS PO PRN (22:23)
[2020-09-18] MEDS: diazePAM 5 MG TABLET PO PRN ×2 (01:37→10:15)
[2020-09-18] MEDS: carBAMazepine 200 MG TABLET PO SCH ×3 (05:31→22:19)
[2020-09-18] MEDS: diazePAM 5 MG TABLET PO SCH ×3 (05:31→22:19)
[2020-09-18] MEDS: PRENATAL VITAMINS W/ FOLIC ACID TABLET (FP) PO SCH (10:13)
[2020-09-18] MEDS: levETIRAcetam 500 MG TABLET (FP) PO SCH ×2 (10:13→22:19)
[2020-09-18] MEDS ORDERED: PNEUMOC 13-VAL CONJ-DIP CRM/PF 0.5 ML DISP.SYRIN IM ONE (12:00)
[2020-09-18] MEDS ORDERED: FLU VACCINE (FLULAVAL) PF 60 MCG/0.5 ML SYRINGE 2020-2021 IM ONE (12:00)
[2020-09-18] MEDS: THIAMINE HCL 100 MG TABLET (FP) PO SCH (22:19)
[2020-09-18] MEDS: MONTELUKAST NA 10 MG TABLET PO SCH (22:19)
[2020-09-18] MEDS: MELATONIN 5 MG TABLETS PO PRN (22:21)
[2020-09-19] MEDS: diazePAM 5 MG TABLET PO SCH ×2 (05:21→18:07)
[2020-09-19] MEDS: carBAMazepine 200 MG TABLET PO SCH ×3 (05:21→22:23)
[2020-09-19] MEDS: levETIRAcetam 500 MG TABLET (FP) PO SCH ×2 (10:09→22:23)
[2020-09-19] MEDS: PRENATAL VITAMINS W/ FOLIC ACID TABLET (FP) PO SCH (10:10)
[2020-09-19] MEDS: diazePAM 5 MG TABLET PO PRN (10:11)
[2020-09-19] MEDS: MONTELUKAST NA 10 MG TABLET PO SCH (22:23)
[2020-09-19] MEDS: THIAMINE HCL 100 MG TABLET (FP) PO SCH (22:23)
[2020-09-19] MEDS: MELATONIN 5 MG TABLETS PO PRN (22:24)
[2020-09-20] MEDS: carBAMazepine 200 MG TABLET PO SCH (05:21)
[2020-09-20] MEDS ORDERED: diazePAM 5 MG TABLET PO ONE (06:00)
[2020-09-20 07:08] LABS: SARS-CoV-2 NAA Not Detected (Not Detected)
[2020-09-20 07:43] VITALS: BP 125/92; PULSE 87; TEMP 99
== END 2020-09-20 08:53 | disposition home or self-care (01) | DRG 775 ==
LOC: YASAS 17:02 → Y6N 19:00
PROVIDERS: ADMIT Allergy & Immunology; ATTEND Allergy & Immunology
PROC: HZ2ZZZZ Detoxification Services for Substance Abuse Treatment (ICD-10-PCS; principal; 2020-09-16)
DX: F10.230 Alcohol dependence with withdrawal, uncomplicated (principal); F10.220 Alcohol dependence with intoxication, uncomplicated; F17.210 Nicotine dependence, cigarettes, uncomplicated; F19.282 Other psychoactive substance dependence with psychoactive substance-induced sleep disorder; F19.24 Other psychoactive substance dependence with psychoactive substance-induced mood disorder; G40.909 Epilepsy, unspecified, not intractable, without status epilepticus; H91.91 Unspecified hearing loss, right ear; I10 Essential (primary) hypertension; J45.909 Unspecified asthma, uncomplicated; Z62.810 Personal history of physical and sexual abuse in childhood; Z87.828 Personal history of other (healed) physical injury and trauma; Z98.890 Other specified postprocedural states; Z56.0 Unemployment, unspecified; Z59.0 Homelessness; Z91.011 Allergy to milk products
CPT/HCPCS: 36415; 80053; 82947; 82962; 85027; 86780; 87389; 90732; C9803; G0008; G0009; Q2036; U0003; U0005